=== PATIENT | male | born 1980 ===

== ENCOUNTER 2018-03-11 14:20 | Outpatient (CLI) | payer OTHER | END 2018-03-11 15:05 | disposition home or self-care (01) | LOC: TOM 14:20 | DX: G93.89 Other specified disorders of brain (principal) ==

== ENCOUNTER 2018-09-25 14:36 | Outpatient (CLI) | payer OTHER | END 2018-09-25 15:01 | disposition home or self-care (01) | LOC: SONOGRAMA 14:36 | DX: E03.8 Other specified hypothyroidism (principal) ==

== ENCOUNTER 2019-02-24 13:47 | Outpatient (CLI) | payer OTHER | END 2019-02-24 14:56 | disposition home or self-care (01) | LOC: EDBD 13:47 → TOM 13:47 | DX: G93.0 Cerebral cysts (principal) ==

== ENCOUNTER 2019-03-24 14:31 | Outpatient (CLI) | payer OTHER | END 2019-03-24 14:34 | disposition home or self-care (01) | LOC: SONOGRAMA 14:31 | DX: E03.8 Other specified hypothyroidism (principal) ==

== ENCOUNTER 2021-05-22 14:27 | Outpatient (CLI) | payer OTHER | END 2021-05-22 15:00 | disposition home or self-care (01) | LOC: SONOGRAMA 14:27 | PROVIDERS: ATTEND Internal Medicine Endocrinology, Diabetes & Metabolism | DX: E04.1 Nontoxic single thyroid nodule (principal) ==

== ENCOUNTER 2023-06-24 07:40 | Outpatient (CLI) | payer OTHER | END 2023-06-24 07:42 | disposition home or self-care (01) | LOC: NUCLEAR 07:40 | DX: D16.5 Benign neoplasm of lower jaw bone (principal) ==

== ENCOUNTER 2023-07-01 13:27 | Outpatient (CLI) | payer OTHER | END 2023-07-01 13:49 | disposition home or self-care (01) | LOC: TOM 13:27 | DX: C41.9 Malignant neoplasm of bone and articular cartilage, unspecified (principal) ==

== ENCOUNTER 2023-08-12 09:15 | Outpatient (CLI) | payer OTHER | END 2023-08-12 09:16 | disposition home or self-care (01) | LOC: NUCLEAR 09:15 | DX: I51.89 Other ill-defined heart diseases (principal) ==